=== PATIENT | male | born 1995 | race Caucasian/White ===

== ENCOUNTER 2017-10-11 17:59 | Emergency (ER) | payer OTHER ==
[2017-10-11] MEDS ORDERED: IBUPROFEN 400 MG TAB ONE (19:20)
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
[2017-10-11] MEDS ORDERED: BUPIVACAINE 0.5% PF 10 ML VIAL ONE (20:36)
[2017-10-11] MEDS ORDERED: LIDOCAINE 1% W/EPI 1:100,000 MDV 50 ML VIAL ONE (20:37)
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
--- NOTE | 2017-10-11 22:28 | RAD REPORT ---
EXAM DESCRIPTION: RAD - Hand Right 3 View - 10/11/2017 9:27 pm CLINICAL HISTORY: Distal fifth metacarpal fracture COMPARISON: Right hand same date FINDINGS: Angulation deformity of the distal fifth metacarpal fracture has been improved but is not yet at anatomic positioning.
== END 2017-10-11 21:45 | disposition home or self-care (01) ==
LOC: ER 17:59
PROC: 3E0T3BZ Introduction of Anesthetic Agent into Peripheral Nerves and Plexi, Percutaneous Approach (ICD-10-PCS; principal; 2017-10-11)
PROC: 2W3CX1Z Immobilization of Right Lower Arm using Splint (ICD-10-PCS; 2017-10-11)
DX: S62.336A Displaced fracture of neck of fifth metacarpal bone, right hand, initial encounter for closed fracture (principal); W22.09XA Striking against other stationary object, initial encounter; Y93.89 Activity, other specified; Y92.9 Unspecified place or not applicable; Z88.1 Allergy status to other antibiotic agents; I10 Essential (primary) hypertension
CPT/HCPCS: 99284

== ENCOUNTER 2019-04-16 18:08 | Emergency (ER) | payer OTHER ==
[2019-04-16] MEDS ORDERED: IBUPROFEN 200 MG TAB PO ONE (19:03)
[2019-04-16] MEDS ORDERED: IBUPROFEN 400 MG TAB ONE (19:03)
--- NOTE | 2019-04-16 19:17 | ER ---
Nurse's Notes [facility] Name: Remington Pride III Age: 24 yrs Sex: Male : 1995 Arrival Date: 04/16/2019 Time: 18:10 Bed 28 Private MD: Diagnosis: Streptococcal pharyngitis Presentation: 04/16 18:15 Presenting complaint: Patient states: i have been having body aches and throat hurts it tw2 started yesterday, and i have been shaking, and a runny nose. Transition of care: patient was not received from another setting of care. Onset of symptoms was April 16, 2019. Risk Assessment: Do you want to hurt yourself or someone else? Patient reports no desire to harm self or others. Initial Sepsis Screen: Does the patient meet any 2 criteria? No. Patient's initial sepsis screen is negative. Does the patient have a suspected source of infection? No. Patient's initial sepsis screen is negative. Care prior to arrival: None. 18:15 Method Of Arrival: Ambulatory tw2 18:15 Acuity: NEERAJ 4 tw2 Triage Assessment: 18:17 General: Appears in no apparent distress. Behavior is calm, cooperative, appropriate tw2 for age. Pain: Complains of pain in uvula, left aspect of posterior pharynx and right aspect of posterior pharynx. EENT: Reports nasal congestion nasal discharge. Respiratory: Reports cough that is non-productive. Historical: - Allergies: 18:17 Ceclor; tw2 - Home Meds: 18:17 None [Active]; tw2 - PMHx: 18:17 Bipolar disorder; Depression; Hypertension; PTSD; Schizophrenia; Anxiety; tw2 - PSHx: 18:17 Appendectomy; left arm; Tonsillectomy; tw2 - Immunization history:: Adult Immunizations. - Coronavirus screen:: The patient has NOT traveled to [place], [place], or [place] in the past 14 days. - Social history:: Smoking status: . - Ebola Screening: : Patient denies travel to an Ebola-affected area in the 21 days before illness onset. Screenin:25 Abuse screen: Denies threats or abuse. Denies injuries from another. Nutritional ls4 screening: No deficits noted. Tuberculosis screening: No symptoms or risk factors identified. Fall Risk None identified. Assessment: 18:20 General: Appears in no apparent distress. comfortable, Behavior is calm, cooperative. ls4 Pain: Complains of pain in uvula, left aspect of posterior pharynx and right aspect of posterior pharynx Pain currently is 5 out of 10 on a pain scale. EENT: Throat is reddened Reports sore throat . 18:25 Neuro: No deficits noted. Cardiovascular: No deficits noted. Respiratory: No deficits ls4 noted. GI: No deficits noted. : No deficits noted. Derm: No deficits noted. Musculoskeletal: No deficits noted. 19:30 Reassessment: Patient appears in no apparent distress at this time. Patient and/or ls4 family updated on plan of care and expected duration. Pain level reassessed. Patient is alert, oriented x 3, equal unlabored respirations, skin warm/dry/pink. Vital Signs: 18:16 BP 154 / 91; Pulse 118; Resp 18; Temp 99.1; Pulse Ox 99% on R/A; Weight 83.46 kg (R); tw2 Height 5 ft. 7 in. (170.18 cm); Pain 5/10; 19:30 BP 132 / 80; Pulse 88; Resp 16; Temp 99.0(O); Pulse Ox 99% on R/A; Pain 3/10; ls4 18:16 Body Mass Index 28.82 (83.46 kg, 170.18 cm) tw2 ED Course: 18:10 Patient arrived in ED. rg4 18:11 [facility] 18:11 Nabil Ceja MD is Attending Physician. [facility] 18:16 Triage completed. tw2 18:18 Arm band placed on. tw2 18:25 Patient has correct armband on for positive identification. Bed in low position. Call ls4 light in reach. Side rails up X 1. Pulse ox on. NIBP on. 18:35 Sunni Samayoa, DENISE is Primary Nurse. ls4 18:36 Strep Sent. 5 18:36 Flu Sent. 5 18:36 Flu and/or RSV swab sent to lab. Strep swab sent to lab. mh5 19:28 No provider procedures requiring assistance completed. Patient did not have IV access ls4 during this emergency room visit. Administered Medications: 19:02 Drug: Motrin 600 mg Route: PO; ls4 19:29 Follow up: Response: No adverse reaction; Marked relief of symptoms ls4 Outcome: 19:16 Discharge ordered by . rayna 19:28 Discharged to home ambulatory. ls4 19:28 Condition: good 19:28 Discharge instructions given to patient, Instructed on discharge instructions, follow up and referral plans. medication usage, Demonstrated understanding of instructions, follow-up care, medications. 19:31 Patient left the ED. ls4 Signatures: Brian Jones PA PA jmm Wise, Tara, RN RN 2 Sadnra Martinez [facility] Karlee Dudley [facility] Sunni Samayoa RN RN ls4 Corrections: (The following items were deleted from the chart) 19: 19:22 General: Appears in no apparent distress. comfortable, Behavior is calm, ls4 cooperative, ls4 19: 19:22 Pain: Complains of pain in uvula, left aspect of posterior pharynx and right ls4 aspect of posterior pharynx Pain currently is 5 out of 10 on a pain scale. ls4 19: 19:22 Neuro: No deficits noted. ls4 ls4 19: 19:22 Cardiovascular: No deficits noted. ls4 ls4 19: 19:22 GI: No deficits noted. ls4 ls4 19: 19:22 Respiratory: No deficits noted. ls4 ls4 19: 19:22 : No deficits noted. ls4 ls4 19: 19:22 Derm: No deficits noted. ls4 ls4 19: 19:22 Musculoskeletal: No deficits noted. ls4 ls4 19: 18:00 EENT: Throat is reddened Reports sore throat . ls4 ls4
--- NOTE | 2019-04-16 19:17 | EDPHYS ---
Physician Documentation [facility] Name: Remington Pride III Age: 24 yrs Sex: Male : 1995 Arrival Date: 04/16/2019 Time: 18:10 Bed 28 Private MD: ED Physician Nabil Ceja HPI: 04/16 18:40 This 24 yrs old Male presents to ER via Ambulatory with complaints of Flu jmm Symptoms. 18:40 The patient or guardian reports cough. Onset: The symptoms/episode began/occurred jmm gradually, 1 day(s) ago. Modifying factors: The symptoms are alleviated by nothing. the symptoms are aggravated by nothing. Associated signs and symptoms: Pertinent positives: earache, fever, sore throat, cough. This is a 24 year old male with a history of htn, that presents to the ED with complaints of cough, body aches, sore throat, ear ache beginning yesterday. brother recently diagnosed with bronchitis. . Historical: - Allergies: 18:17 Ceclor; tw2 - Home Meds: 18:17 None [Active]; tw2 - PMHx: 18:17 Bipolar disorder; Depression; Hypertension; PTSD; Schizophrenia; Anxiety; tw2 - PSHx: 18:17 Appendectomy; left arm; Tonsillectomy; tw2 - Immunization history:: Adult Immunizations. - Coronavirus screen:: The patient has NOT traveled to [place], [place], or [place] in the past 14 days. - Social history:: Smoking status: . - Ebola Screening: : Patient denies travel to an Ebola-affected area in the 21 days before illness onset. ROS: 18:40 Constitutional: Positive for body aches, chills, fever. jmm 18:40 ENT: Positive for ear pain, sore throat. 18:40 Respiratory: Positive for cough. 18:40 All other systems are negative. Exam: 18:40 Constitutional: This is a well developed, well nourished patient who is awake, alert, jmm and in no acute distress. Head/Face: atraumatic. 18:40 Neck: Trachea midline, Supple Chest/axilla: Normal chest wall appearance and motion. 18:40 Abdomen/GI: Non distended, soft Back: Normal ROM Skin: General appearance color normal MS/ Extremity: Moves all extremities, no obvious deformities appreciated, no edema noted to the lower extremities Neuro: Awake and alert, normal gait Psych: Behavior is normal, Mood is normal, Patient is cooperative and pleasant 18:40 Eyes: Conjunctiva: injected, bilaterally. 18:40 ENT: TM's: erythema, that is moderate, on the right, Posterior pharynx: erythema, that is mild. 18:40 Cardiovascular: Rate: normal, Rhythm: regular, Pulses: no pulse deficits are appreciated. 18:40 Respiratory: the patient does not display signs of respiratory distress, Respirations: normal, Breath sounds: are clear throughout. Vital Signs: 18:16 BP 154 / 91; Pulse 118; Resp 18; Temp 99.1; Pulse Ox 99% on R/A; Weight 83.46 kg (R); tw2 Height 5 ft. 7 in. (170.18 cm); Pain 5/10; 19:30 BP 132 / 80; Pulse 88; Resp 16; Temp 99.0(O); Pulse Ox 99% on R/A; Pain 3/10; ls4 18:16 Body Mass Index 28.82 (83.46 kg, 170.18 cm) tw2 MDM: 18:21 Patient medically screened. [facility] 19:11 Data reviewed: vital signs, nurses notes. Counseling: I had a detailed discussion with zeke the patient and/or guardian regarding: the historical points, exam findings, and any diagnostic results supporting the discharge/admit diagnosis, lab results, the need for outpatient follow up, to return to the emergency department if symptoms worsen or persist or if there are any questions or concerns that arise at home. ED course: Patient is alert and non toxic in appearance in the ED. Patient advised to follow up with pcp and otherwise given strict return precautions. patient understood and agrees with the plan of care. . 04/16 18:22 Order name: Flu [facility] 02 18:22 Order name: Strep [facility] 04/16 18:50 Order name: Group A Streptococcus Rapid Sc; Complete Time: 18:58 EDMS 04/16 19:03 Order name: Influenza Screen (A ; Complete Time: 19:04 EDMS Administered Medications: 19:02 Drug: Motrin 600 mg Route: PO; ls4 19:29 Follow up: Response: No adverse reaction; Marked relief of symptoms ls4 Disposition: 04/16/19 19:16 Discharged to Home. Impression: Streptococcal pharyngitis. - Condition is Stable. - Discharge Instructions: Strep Throat. - Prescriptions for Augmentin 875- 125 mg Oral Tablet - take 1 tablet by ORAL route every 12 hours for 10 days; 20 tablet. - Medication Reconciliation Form, Thank You Letter, Antibiotic Education, Prescription Opioid Use form. - Follow up: Private Physician; When: 2 - 3 days; Reason: Recheck today's complaints, Continuance of care, Re-evaluation by your physician. Addendum: 04/18/2019 07:25 Co-signature as Attending Physician, Nabil Ceja MD. r n Signatures: Dispatcher [employer] EDMS Brian Jones PA PA Nabil Nice MD MD rn Tasia Conte RN RN tw2 Sunni Samayoa RN RN ls4 Corrections: (The following items were deleted from the chart) 04/16 19:31 19:16 04/16/2019 19:16 Discharged to Home. Impression: Streptococcal pharyngitis. ls4 Condition is Stable. Forms are Medication Reconciliation Form, Thank You Letter, Antibiotic Education, Prescription Opioid Use. Follow up: Private Physician; When: 2 - 3 days; Reason: Recheck today's complaints, Continuance of care, Re-evaluation by your physician. julianna
[2019-04-16 19:38] VITALS: O2SAT 99
[2019-04-16 19:39] VITALS: BP 132/80; TEMP 99
== END 2019-04-16 19:31 | disposition home or self-care (01) ==
LOC: ER 18:08
DX: J02.0 Streptococcal pharyngitis (principal); Z88.1 Allergy status to other antibiotic agents
CPT/HCPCS: 87081; 87804; 99283